=== PATIENT | male | born 1965 | race Caucasian/White ===

== ENCOUNTER → 2018-10-24 | Day surgery (SDC) | payer OTHER ==
[2018-10-22 12:29] LABS: Protime INR 0.97
--- NOTE | 2018-10-22 12:37 | RAD REPORT ---
EXAM DESCRIPTION: Cyndi Man And Nick (2 Views)10/22/2018 12:13 pm CLINICAL HISTORY: Preop for heart catheterization COMPARISON: None FINDINGS: Small opacity lies posterior to the heart on the lateral view. No corresponding abnormali ty seen on the frontal view The lungs appear clear of acute infiltrate. The heart is normal size IMPRESSION: Small opacity lies posterior to the heart on the lateral view. No corresponding abnormal ity seen on the frontal view. Most likely this represents confluence of ribs and vessels rather than a mass/infiltrate. As a precaution it is recommended that the patient have a followup chest series in 2-3 months for re-evaluation
[~2018-10-24] MED LIST: ATROPINE SULF 1 MG/10 ML SYR IV ONE; FENTANYL CITR 100 MCG/2 ML ONE; HEPARIN 5000 UNIT/ML 1 ML VIAL ONE; MIDAZOLAM HCL 2 MG/2 ML INJ ONE; NA CHLORIDE 0.9% 0 ML IV ONE; NA CHLORIDE 0.9% 0 ML ONE; NA CHLORIDE 0.9% 500 ML ONE; NICARDIPINE HCL 25 MG/10 ML IV ONE; NITROGLYCERIN 100 MCG/ML SYR (for cath lab use only) IV ONE; NITROGLYCERIN/D5W 25 MG/250 ML BTL IV ONE
--- NOTE | 2018-10-24 14:07 | OP ---
Surgeon: Sandoval Hughes MD Additional Attending Physician: Dr. Katie Wetzel. Procedures: Left heart catheterization, coronary left ventricular angiography. Indication: Abnormal Cardiolite stress test showing inferior scar and ischemia. Findings: The patient's coronaries are normal. The left ventricular ejection fraction and segmental wall motion are normal. All of the pressures are normal. It is a false-positive stress test. Procedure In Detail: The patient was brought to the cardiac mini lab operator in a fasting state, sedated wit h Versed and fentanyl, prepared and draped in usual sterile fashion. Right radial approach was used. The right radial artery was palpated past the Rony's and Barbeau test. We anesthetized the skin o francisco the artery with 1% lidocaine, entered the artery with a 21-gauge needle, cannulated it with a 0.0 21 inch diameter guidewire, and placed a 6-[place] Terumo sheath, flushed, and gave a radial cocktail consisting of nicardipine, heparin, nitroglycerin. We placed a TIG catheter from [employer] into the asc ending aorta using a [employer] Glidewire with a short radius J-tip and fluoroscopy and a regular J-wire. Once this was done, we were able to angiogram right coronary, left coronary, left ventricle using t he same catheter. At the end of the procedure when all the findings of normality were seen, we decid ed to remove the catheter. We straightened it using a J-wire, removed it, flushed the sheath, removed the sheath, and closed the arteriotomy using a large TR band. Estimated blood loss 5 cc. Co mplications from the procedure, none. ANTHONY/SONIA Voice ID: [id number] Report ID: [id number]
== END | disposition home or self-care (01) ==
LOC: CCL 07:50
PROVIDERS: ATTEND Internal Medicine
DX: I20.8 Other forms of angina pectoris (principal); I10 Essential (primary) hypertension; F17.210 Nicotine dependence, cigarettes, uncomplicated; Z79.899 Other long term (current) drug therapy
CPT/HCPCS: 36415; 71046; 82962; 85610; 85730; 93458; C1893; J0583; J1644; J2250; J3010